=== PATIENT | female | born 1980 | race American Indian/Alaskan Native ===

== ENCOUNTER 2022-05-22 12:48 | Emergency (ER) | payer MEDICARE, SELFPAY ==
--- NOTE | ~2022-05-22 | XR_ITS ---
EXAM: XR foot LT min 3V, XR foot RT min 3V DATE: 05/22/2022 14:02 HISTORY: foot pain, Swelling . COMPARISON: None available. FINDINGS: Normal mineralization. No fracture or dislocation. No lytic or blastic lesion. Joint space s are maintained. Bilateral Achilles enthesopathy. Left plantar enthesopathy No erosion or periosteal change. Soft tissues within normal limits. IMPRESSION: No acute osseous finding in the left or right feet. Reviewed, dictated and finalized at location K. IMPRESSION: No acute osseous finding in the left or right feet.
[2022-05-22 12:52] VITALS: BP 162/81; PULSE 81; RESP 19; TEMP 36.6; O2SAT 99
[2022-05-22 13:06] VITALS: BP 162/81; PULSE 70; RESP 18; TEMP 36.6; O2SAT 99
--- NOTE | 2022-05-22 13:35 | ED.LOWEXIN ---
HPI - Extremity Injury (Lower) General Chief Complaint: Extremity Injury, Lower Stated Complaint: Feet and ankles swollen Time Seen by Provider: 05/22/22 13:35 Source: patient Mode of arrival: ambulatory History of Present Illness HPI Narrative: 41-year-old female with no significant past medical history presents to the ER with -- bilateral foot pain -- the patient is unable to walk and bear weight. The patient has been working a lot lately. 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 Onset (ago): day(s) ( Started 3 days ago.) Injury: Bilateral: foot Severity: moderate Relieving factors: nothing Exacerbating factors: weight bearing Related Data Allergies Allergy/AdvReac Type Severity Reaction Status Date / Time No Known Allergies Allergy Verified 05/22/22 13:33 Review of Systems Review of Systems: All systems reviewed & are unremarkable except as noted in HPI and below Constitutional: Constitutional: Reports as per HPI and Reports no additional constitutional complaints Eyes: Eyes: Reports as per HPI and Reports no additional eye complaints ENT: Reports system reviewed and no additional complaints, except as documented and Reports as per HPI Cardiovascular: Cardiovascular: Reports as per HPI and Reports no additional cardiovascular complaints Respiratory: Respiratory: Reports as per HPI and Reports no additional respiratory complaints Gastrointestinal: Gastrointestinal: Reports as per HPI and Reports no additional gastrointestinal complaints Genitourinary: Genitourinary: Reports no additional female genitourinary complaints and Reports as per HPI Musculoskeletal: Musculoskeletal: Reports no additional musculoskeletal complaints and Reports as per HPI Comments: Bilateral foot pain. Worse on weight-bearing. Integumentary/Breasts: Skin/Breast: Reports system reviewed and no additional complaints, except as docu and Reports as per HPI Neurologic: Reports system reviewed and no additional complaints, except as documented and Reports as per HPI Psychiatric: Psychiatric: Reports no additional psychiatric complaints and Reports as per HPI Endocrine: Endocrine: Reports no additional endocrine complaints and Reports as per HPI Hematologic/Lymphatic: Hematologic/Lymphatic: Reports no additional hematologic/lymphatic complaints and Reports as per HPI Allergic/Immunologic: Allergic/Immunologic: Reports no additional allergic/immunologic complaints and Reports as per HPI Exam Const: General: healthy appearing and no acute distress Nutritional Appearance: well nourished Orientation/consciousness: patient oriented x3 Limitations: no limitations HENMT: Head: normal to inspection Ears: external ears normal Face/Nose/Sinus: Normal external nose present Face and sinus: normal facial exam Mouth: Yes Normal oral and palatal mucosa present Throat: posterior oropharynx normal Eyes: Conjunctivae: conjunctivae normal Pupils: Equal, round and reactive pupils present EOM: EOMs intact bilaterally Direct Ophthalmoscopy: no photophobia Neck: Neck: normal visual inspection, no lymphadenopathy and no meningeal signs Chest: Chest palpation & inspection: normal inspection of the chest Resp: Effort & Inspection: normal respiratory effort Auscultation: clear to auscultation bilaterally Cardio: Rate: regular rate Rhythm: regular rhythm Heart sounds: Murmur heart sound present GI: GI Palp: Yes Soft to palpation and Yes Tenderness to palpation present (GI) ( no tenderness/ rigidity / rebound.) Auscultation: normal bowel sounds : General: Yes no CVA tenderness Back/Spine/Pelvis: Back: no CVA tenderness Skin: General skin exam: normal color Rashes: no rashes Wounds: no wounds Neuro: General: patient oriented x3, moves all extremities, no meningeal signs, no focal motor deficits and CN's II-XI intact bilaterally Extrem: General: normal to inspection Other: Tenderness on palpation of both
[2022-05-22 13:51] VITALS: BP 148/81; PULSE 75; RESP 20; O2SAT 97
[2022-05-22] MEDS: KETOROLAC 30 MG/ML VIAL (*BKC) IM (15:23)
[2022-05-22 15:26] VITALS: BP 147/86; PULSE 110; RESP 20; TEMP 36.5; O2SAT 97
== END 2022-05-22 15:31 | disposition home or self-care (01) ==
PROVIDERS: Emergency Provider Internal Medicine Critical Care Medicine
DX: M79.672 Pain in left foot (principal); M79.671 Pain in right foot
CPT/HCPCS: 73630; 96372; 99284; J1885